=== PATIENT | male | born 1970 | race Caucasian/White ===

== ENCOUNTER 2022-04-20 06:17 | Day surgery (SDC) | payer OTHER ==
[~2022-04-20] VITALS: Ht 185.4 cm; Wt 85.6 kg
[2022-04-20] MEDS ORDERED: LAMO25 (07:01)
[2022-04-20] MEDS ORDERED: Coq-1030 MG (07:01)
[2022-04-20] MEDS ORDERED: FISH OIL 1,2001 EAC7 (07:01)
[2022-04-20] MEDS ORDERED: ATOR10 (07:01)
[2022-04-20] MEDS ORDERED: Lisinopril2.5 MG (07:02)
[2022-04-20] MEDS ORDERED: TAMS.4ER (07:02)
[2022-04-20] MEDS ORDERED: NORT10 (07:03)
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
== END 2022-04-20 10:52 | disposition home or self-care (01) ==
LOC: ORSCSDS 06:17
PROVIDERS: Orthopaedic Surgery
PROC: 0RQS0ZZ Repair Right Carpometacarpal Joint, Open Approach (ICD-10-PCS; principal; 2022-04-20 07:30)
DX: M18.11 Unilateral primary osteoarthritis of first carpometacarpal joint, right hand (principal); F17.210 Nicotine dependence, cigarettes, uncomplicated; I10 Essential (primary) hypertension; J45.909 Unspecified asthma, uncomplicated; Z79.899 Other long term (current) drug therapy
CPT/HCPCS: A9270; C1713; J0690; J1100; J2250; J2370; J2405; J2704; J2795; J3010

== ENCOUNTER 2022-04-28 06:20 | Emergency (ER) | payer OTHER ==
[~2022-04-28] VITALS: Ht 185.4 cm; Wt 86.2 kg
[~2022-04-28 06:20] MED LIST: ATOR10; Coq-1030 MG; FISH OIL 1,2001 EAC7; LAMO25; Lisinopril2.5 MG; NORT10; TAMS.4ER
== END 2022-04-28 08:11 | disposition home or self-care (01) ==
LOC: ER 06:20
DX: G89.18 Other acute postprocedural pain (principal); F17.220 Nicotine dependence, chewing tobacco, uncomplicated
CPT/HCPCS: 99283

== ENCOUNTER 2023-04-20 06:37 | Day surgery (SDC) | payer OTHER ==
[~2023-04-20] VITALS: Ht 185.4 cm; Wt 89.2 kg
[2023-04-20] MEDS ORDERED: HYDROCODONE-AC1 EAC7 PO (07:28)
[2023-04-20] MEDS ORDERED: TIZA4 PO (07:31)
[2023-04-20] MEDS ORDERED: NORVASC5 MG PO (07:32)
[2023-04-20] MEDS ORDERED: ACIDOPHILUS1 EAC3 PO (07:33)
[2023-04-20] MEDS ORDERED: CHLO4 PO (07:33)
[2023-04-20] MEDS ORDERED: MELA3 PO (07:33)
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
[2023-04-20 10:29] VITALS: BP 135/88
--- NOTE | 2023-04-20 11:31 | NUR ---
04/20/23 1131 Thiago Deleon IV REMOVED INTACT. SITE WNL.
== END 2023-04-20 11:15 | disposition home or self-care (01) ==
LOC: ORSCSDS 06:37
PROVIDERS: Orthopaedic Surgery
PROC: 0RQT0ZZ Repair Left Carpometacarpal Joint, Open Approach (ICD-10-PCS; principal; 2023-04-20 08:30)
DX: M18.12 Unilateral primary osteoarthritis of first carpometacarpal joint, left hand (principal); I10 Essential (primary) hypertension; E78.5 Hyperlipidemia, unspecified; F41.8 Other specified anxiety disorders; F43.10 Post-traumatic stress disorder, unspecified; F17.220 Nicotine dependence, chewing tobacco, uncomplicated; Z79.899 Other long term (current) drug therapy
CPT/HCPCS: C1713; J0171; J0690; J1100; J2250; J2405; J2704; J2795; J7120